=== PATIENT | female | born 1975 | race Caucasian/White ===

== ENCOUNTER 2022-02-26 09:59 | Outpatient (CLI) | payer OTHER, SELFPAY ==
[2022-02-26 10:08] LABS: Absolute Lymphocyte Count 2.62 X10^3/uL (0.83-4.51); Absolute Neutrophil Count 4.3 X10^3/uL (2.0-7.7); Basophil# 0.06 X10^3/uL; Basophil% 0.8 % (0-1); Eosinophil# 0.14 X10^3/uL; Eosinophils% 1.8 % (0-5); Hematocrit 40.7 % (37-47); Hemoglobin 13.4 g/dL (12.0-15.0); Lymphocyte # 2.62 X10^3/ul (0.83-4.51); Lymphocyte % 33.1 % (19-41); Mean Corp Hgb Conc 32.9 g/dL (32-36); Mean Corpuscular Hgb 29.7 pg (27.0-32.0); Mean Corpuscular Volume 90.2 fL (81-99); Mean Platelet Vol. 11.6 fl (6.2-12.0); Monocyte# 0.74 X10^3/uL; Monocyte% 9.4 % (0-10); NRBC Flagged by Analyzer 0 % (0-5); Neutrophil # 4.33 X10^3/uL (2.7-7.7); Neutrophil % 54.6 % (47-70); Platelet Count 312 K/mm3 (150-450); RBC Distribution Width CV 13.4 % (11.6-14.6); Red Blood Count 4.51 M/mm3 (4.2-5.4); White Blood Count 7.9 K/mm3 (4.4-11.0)
[2022-02-26 10:36] LABS: BUN 19 mg/dL (7-18); BUN/Creat Ratio 15.7 RATIO (10-20); Calcium,Total 9.1 mg/dL (8.5-10.1); Chloride 99 mmol/L (98-107); Creatinine, Serum 1.21 mg/dL (0.55-1.02); EST Glomerular Filtration Rate 50 mL/min (>60); Est Glom Filt Rate - Afr Amer 61 mL/min (>60); Glucose 100 mg/dL (74-106); Phosphorus 3.3 mg/dL (2.5-4.9); Potassium 3.2 mmol/L (3.5-5.1); Sodium Level 139 mmol/L (136-145)
== END 2022-02-26 23:59 | disposition home or self-care (01) ==
PROVIDERS: Referring Provider Nurse Practitioner; Visit Provider Nurse Practitioner
DX: L03.90 Cellulitis, unspecified (principal)
CPT/HCPCS: 80069; 85025

== ENCOUNTER 2022-07-17 14:15 | Outpatient (RCR) | payer OTHER, SELFPAY ==
[2022-06-26 13:10] VITALS: BP 157/94; PULSE 73; RESP 16; TEMP 36.1; BMI 39.4
--- NOTE | 2022-06-26 16:15 | HP.PCM_ITS ---
History of Present Illness Date of Service: 06/26/22 Chief Complaint: Right and left leg non healing ulcers History of Wound: Patient is a 46 year old female who was referred by [facility] for a non healing ulcer on her left anterior leg. She had a cellulitis on her left leg in February and was treated with Cefdinir. Her dog scratched her right lateral leg 4 weeks ago. She has been compression to help with her lower leg edema and her PCP has placed her on furosemide daily. She has not been placing anything on her ulcers. She has been getting in her swimming pool at home to lay on a raft. She has a history of Fibromyalgia, HTN, Hyperthyroidism (that is resolved). Today she denies fever, chills, nausea, vomiting. She states her appetite is good. Progress of Wound: Right lateral leg wound is very small with some depth, unable to see the bottom of the ulcer, but it drains clear drainage. Left anterior leg ulcer has scab covering the ulcer, it is more sensitive to palpation. She has +2 edema even with wearing compression stockings. [facility] Medical History Bilateral lower extremity edema Fibromyalgia History of hyperthyroidism Hypertension Home Medications furosemide 20 mg tablet 20 mg PO DAILY 06/26/22 [History Last Taken Unknown] hydrochlorothiazide 50 mg tablet 50 mg PO DAILY 06/26/22 [History Last Taken Unknown] metoprolol tartrate 50 mg tablet 50 mg PO BID 06/26/22 [History Last Taken Unknown] milnacipran 50 mg tablet (Savella) 50 mg PO BID 06/26/22 [History Last Taken Unknown] naltrexone 50 mg tablet 6.5 mg PO DAILY 06/26/22 [History Last Taken Unknown] potassium 20 mg chewable tablet 20 mg PO DAILY 06/26/22 [History Last Taken Unknown] pregabalin 300 mg capsule (Lyrica) 150 mg PO BID 06/26/22 [History Last Taken Unknown] Allergy/AdvReac Type Severity Reaction Status Date / Time Sulfa (Sulfonamide Allergy Hives Verified 06/26/22 13:30 Antibiotics) sulfamethoxazole AdvReac Other Verified 06/26/22 13:30 [From Bactrim] trimethoprim [From Bactrim] AdvReac Other Verified 06/26/22 13:30 Social History Smoking Status: Never smoker ROS Constitutional Constitutional: Reports body ache(s), fatigue and frequent falls; Denies chills or fever(s) Eyes Eyes: Reports none ENT HEENT: Reports none Cardiovascular Cardiovascular: Reports leg edema; Denies chest pain or dyspnea Respiratory/Chest Respiratory/Chest: Denies cough or dyspnea Gastrointestinal Gastrointestinal: Reports none Musculoskeletal Musculoskeletal: Reports stiffness Integumentary Integumentary: Reports skin ulcer and skin swelling; Denies erythema Psychiatric Psychiatric: Reports none Endocrine Endocrinology: Reports none Vital Signs Vital Signs Vital Signs: 06/26/22 13:10 Temperature 97 F L Temperature Source Temporal Pulse Rate 73 Respiratory Rate 16 Blood Pressure 157/94 H Blood Pressure Mean 115 Blood Pressure Source Monitor Blood Pressure Position Sitting Blood Pressure Location Left Arm Oxygen Delivery Method Room Air Weight Weight: 237 lb Body Mass Index (BMI) 39.4 Physical Exam Const alert, oriented x3 and no apparent distress General Appearance: cooperative HEENT normocephalic Neck full ROM Resp normal respiratory effort, normal air movement and clear to auscultation bilaterally Cardio regular rate and regular rhythm Peripheral Pulses: dorsalis pedis pulses present GI soft to palpation and non-tender Extremity normal capillary refill Extremity Narrative: bilateral lower extremity edema +2 Skin Wound Narrative: Right lateral leg ulcer is very small, with depth and drains clear serous fluid. Left anterior leg ulcer with dry scabbing, very tender to palpation. Neuro oriented x3 and moves all extremities Psych mental status grossly normal Debridement Note Debridement Note Wound debrided: anterior leg ulcer Laterality: Left Type of Debridement: Excisional debridement Anesthesia Used: 5% Lidocaine Gel Depth: Down to and including healthy tissue and in the subcutaneous layer Percentage of wound debrided: 100 Instrument Used: 5mm curette Tissue Removed: Devitalized tissue and slough Severity: Fat Layer Exposed Amount of bleeding with debridement: Mild Bleeding Controlled with: Pressure and Compression and gauze Patient tolerated procedure: Patient tolerated procedure well Post-Debridement Measurements and Additional Note: Post-Debridement Measurements/Treatment WC - Nurse 1 - General Ulcer Assessment Start: 06/26/22 13:09 Freq: Status: Active Protocol: [email or web address] Activity Type Activity Date Activity User E-sign Co-sign Detail Recorded Client Recorded Date Recorded By Document 06/26/22 13:10 [facility] [id number] 06/26/22 13:26 [facility] 06/26/22 13:10 WC - Today's Visit Information Type of service Initial Visit Arrival Mode Ambulatory Transfer Assistance None Patient Identification Verified (Name & Yes ) Patient Requires Transmission-Based No Precautions Height and Weight Height 5 ft 5 in Weight 237 lb Weight in Pounds 237.0 lbs Weight Measurement Method Estimated by Patient Body Mass Index (BMI) 39.4 BMI Classification Obese BSA - Gerardo 2.13 Vital Signs Temperature (97.8 F-99.1 F) 97 F L Temperature Source Temporal Pulse Rate (60-100) 73 Pulse Location Monitor Respiratory Rate (12-18) 16 Respiratory rate source Observation Oxygen Delivery Method Room Air Blood Pressure (90/60-120/80) 157/94 H Blood Pressure Mean 115 Source Monitor Position Sitting Blood Pressure Location Left Arm History Since Last Visit- (Skip if this is Patient's initial visit) Left Footwear Regular Shoe Right Footwear Regular Shoe Pain Scale: 0-10 Numeric Is Patient Pain Free? Yes Lower Extremity Assessment/ Foot Assessment/ Toe Nail Assessment Right -Posterior Tibial Palpable No -Posterior Tibial Doppler Monophasic -Dorsalis Pedis Palpable Yes -Dorsalis Pedis Doppler Monophasic -Extremity Color Normal -Hair Growth on Legs Yes -Hair Growth on Toes Yes -Temperature of Extremity Warm -Capillary Refill Less than 3 Seconds -Other Deformity No -Prior Foot Ulcer No -Charcot Joint No -Prior Amputation No -Thick No -Discolored No -Deformed No -Improper Length & Hygeine No Left -Posterior Tibial Palpable No -Posterior Tibial Doppler Monophasic -Dorsalis Pedis Palpable Yes -Dorsalis Pedis Doppler Monophasic -Extremity Color Normal -Hair Growth on Legs Yes -Hair Growth on Toes Yes -Temperature of Extremity Warm -Other Deformity No -Prior Foot Ulcer No -Charcot Joint No -Prior Amputation No -Thick No -Discolored No -Deformed No -Improper Length & Hygeine No Neuropathy Assessment Feet - Top Side and Bottom <Entered> (a) Communication Assessment Preferred language [place] Fishing Captain Required No Able to Read Yes Able to Write Yes Communication Tools None Right Hearing Abillity Normal Left Hearing Abillity Normal Visual Assistive Devices Glasses Teaching Assessment Preferences Verbal,Written, Audio/Visual, Demonstration Barriers to Learning None Readiness To Learn Excellent Willingness to Engage in Self Management High Activies Readiness to Engage in Self Management High Activities Anxiety Level Calm Cooperation Cooperative Perception Coherent Interest in Health Problem Asks Questions Education Importance Acknowledges Need Does Patient Smoke tobacco or other No substances Smoking Status Never smoker Is Patient Diabetic No Functional Assessment Recent Decline in Ability to Perform Denies Any Declines Culture/Adventist/Residential Real Estate Agent Cultural/Adventist Needs that may affect No Treatment Plan Teaching: Wound Center *Welcome to the Wound Center -Person Taught Patient -Teaching Method Discussion -Response to teaching Verbalize understanding Welcome to the Wound Care Center [place] (a) 1 - + WC - Nurse 1 - General Ulcer Measurement Start: 06/26/22 13:09 Freq: Status: Active Protocol: Activity Type Activity Date Activity User E-sign Co-sign Detail Recorded Client Recorded Date Recorded By Document 06/26/22 13:10 [facility] [id number] 06/26/22 13:26 [facility] 06/26/22 13:10 Wound Center Nurse 1 #2- L VIZCAINO -Combined with other wound No -Current Size (cm) - Length 0.6 -Current Size (cm) - Width 1.1 -Current Size (cm) - Depth 0.1 -Total Square Cm 0.66 -Date of Last Picture (Recall this 06/26/22 field) -Photo Taken Yes -Epithelialization None Present -Tunneling No -Undermining/Tunneling No -Circular Undermining No -Exudate Amt None Present -Wound Margin Distinct, Outline Attached -Granulation Amt None Present (0 %) -Slough/Fibrin Yes -Necrosis Amt Large (67-100%) -Necrotic Tissue Type Adherent Slough -Texture (Brooke-wound Skin Appearance) Assessed, Scarring -Moisture (Brooke-wound Skin Appearance) Assessed,Dry/ Scaly -Color (Brooke-wound Skin Appearance) Assessed -Temperature (Brooke-wound Skin No Abnormality Appearance) (Pt Warm) -Tenderness on Palpation (Brooke-wound No Skin Appearance) -Ulcer Cleansing Rinsed/ Irrigated with Saline -Foul Odor after Cleansing No -Anesthetic Used 5% Lidocaine Gel #1- R LAT LE -Combined with other wound No -Current Size (cm) - Length 0.1 -Current Size (cm) - Width 0.3 -Current Size (cm) - Depth 0.2 -Total Square Cm 0.03 -Date of Last Picture (Recall this 06/26/22 field) -Photo Taken Yes -Epithelialization None Present -Tunneling No -Undermining/Tunneling No -Circular Undermining No -Exudate Amt Small -Exudate Type Serous -Wound Margin Distinct, Outline Attached -Granulation Amt Large (67-100%) -Granulation Quality Drummond -Slough/Fibrin No -Necrosis Amt None Present (0 %) -Texture (Brooke-wound Skin Appearance) Assessed, Scarring -Moisture (Brooke-wound Skin Appearance) Assessed -Color (Brooke-wound Skin Appearance) Assessed -Temperature (Brooke-wound Skin No Abnormality Appearance) (Pt Warm) -Tenderness on Palpation (Brooke-wound No Skin Appearance) -Ulcer Cleansing Rinsed/ Irrigated with Saline -Foul Odor after Cleansing No -Anesthetic Used 5% Lidocaine Gel Lower Limb Edema Present Yes Right Calf (cm) 49.4 Right Ankle (cm) 26.4 Left Calf (cm) 49.8 Left Ankle (cm) 27.1 WC - Nurse 2 - General Ulcer CM Notes Start: 06/26/22 13:09 Freq: Status: Active Protocol: Activity Type Activity Date Activity User E-sign Co-sign Detail Recorded Client Recorded Date Recorded By Document 06/26/22 13:45 [id number] 06/26/22 13:56 06/26/22 13:45 Wound Center Nurse 2 #2- L VIZCAINO -Time 13:46 -Correct Patient Yes -Correct Side, Site, Position Yes -Correct Procedure Yes -Procedure Performed Yes -Type of Procedure Debridement -Clinical Debridement Subcutaneous -Tissue Removed Subcutaneous -Post Debridement (cm) - Length 0.7 -Post Debridement (cm) - Width 1.0 -Post Debridement (cm) - Depth 0.2 -Total Square (Post) (cm) 0.70 -Area of Debridement (cm) - Length 0.7 -Area of Debridement (cm) - Width 1.0 -Total Square (Area) (cm) 0.70 -Tunneling No -Undermining/Tunneling No -Circular Undermining No -Wound/Ulcer Outcome Not Healed -Ulcer Cleansing Rinsed/ Irrigated with Saline -Foul Odor after Cleansing No -Bioengineered Tissue No -Bleeding Controlled with Pressure -Treatment Response Procedure Tolerated Well -Offloading No -Debridement - Subq, 1st 20sq cm No #1- R LAT LE -Time 13:47 -Correct Patient Yes -Correct Side, Site, Position Yes -Correct Procedure Yes -Procedure Performed Yes -Type of Procedure Debridement -Clinical Debridement Subcutaneous -Tissue Removed Subcutaneous -Post Debridement (cm) - Length 0.2 -Post Debridement (cm) - Width 0.4 -Post Debridement (cm) - Depth 0.2 -Total Square (Post) (cm) 0.08 -Area of Debridement (cm) - Length 0.2 -Area of Debridement (cm) - Width 0.4 -Total Square (Area) (cm) 0.08 -Tunneling No -Undermining/Tunneling No -Circular Undermining No -Wound/Ulcer Outcome Not Healed -Ulcer Cleansing Rinsed/ Irrigated with Saline -Foul Odor after Cleansing No -Bioengineered Tissue No -Bleeding Controlled with Pressure -Treatment Response Procedure Tolerated Well -Offloading No -Debridement - Subq, 1st 20sq cm Yes Pain Scale: 0-10 Numeric Is Patient Pain Free? Yes - Nurse 3 - General Ulcer D/C NN Start: 06/26/22 13:09 Freq: Status: Active Protocol: Activity Type Activity Date Activity User E-sign Co-sign Detail Recorded Client Recorded Date Recorded By Document 06/26/22 14:17 [facility] [id number] 06/26/22 14:18 [facility] 06/26/22 14:17 Wound Care Nurse 3 #2- L VIZCAINO -Ulcer Cleansing Rinsed/ Irrigated with Saline -Foul Odor after Cleansing No -Primary Dressing Applied C Hydrogel ($), Mepilex Border, NonAdherent Contact Layer -Mepilex Border 2 #1- R LAT LE -Ulcer Cleansing Rinsed/ Irrigated with Saline -Foul Odor after Cleansing No -Primary Dressing Applied Mepilex Border, Other -Other Dressing HYDROGEL -Mepilex Border 0 Right -Tubular Bandage Double Layer -Size of Tubigrip Used Size F -Size F ($) 1 Left -Tubular Bandage Double Layer -Size of Tubigrip Used Size F -Size F ($) 1 Treatment Response Procedure Tolerated Well Pain Scale: 0-10 Numeric Is Patient Pain Free? Yes - Visit Discharge Discharge Condition Stable Ambulatory Status Ambulatory Transportation Private Auto Additional Wound Wound debrided: lateral leg ulcer Laterality: Right Type of Debridement: Excisional debridement Anesthesia Used: 5% Lidocaine Gel Depth: Down to and including healthy tissue and in the subcutaneous layer Percentage of wound debrided: 100 Instrument Used: - (size 1 mm curette) Tissue Removed: Devitalized tissue and slough Severity: Fat Layer Exposed Bleeding Controlled with: Compression and gauze Patient tolerated procedure: Patient tolerated procedure well Charges/Coding Visit Charges Office Visits / Consults: 54061 OV L4 Est (25 modifier) Procedures Integumentary [id number]: [id number] Geeta subq tissue 20 sq cm/< Assessment/Plan Assessment/Plan (1) Ulcer of left lower extremity with fat layer exposed: CODE(S): L97.922 - Non-pressure chronic ulcer of unspecified part of left lower leg with fat layer exposed (2) Ulcer of right leg: CODE(S): L97.919 - Non-pressure chronic ulcer of unspecified part of right lower leg with unspecified severity (3) Bilateral lower extremity edema: CODE(S): R60.0 - Localized edema (4) Hypertension: CODE(S): I10 - Essential (primary) hypertension (5) Fibromyalgia: CODE(S): M79.7 - Fibromyalgia PLAN: Plan Patient was evaluated at the wound healing center today. A subcutaneous debridement was performed as documented. Wound care - Collagen hydrogel covered with SAP dressing daily. Double tubigrip for compression. Will order CARIN to be done next week before her appointment so we know what kind of compression we will be able to do. Will also order venous studies to be done. Wound culture obtained on the left anterior leg ulcer today, 06/26/22. Depending on the results of the culture, it may necessitate the need for treatment with antibiotics. Discussed wearing compression through the day and removing it at night time. Instructed her to avoid getting into the swimming pool, as this may delay wound healing. Encouraged a diet high in protein with increased vitamin C to help with wound healing. Follow up on week. She is to call or come in sooner if she has any questions or concerns.
[2022-07-03 13:16] VITALS: BP 136/86; PULSE 75; RESP 18; TEMP 36; BMI 39.4
--- NOTE | 2022-07-03 16:08 | PCM.WC.PN ---
History of Present Illness Date of Service: 07/03/22 Chief Complaint: Right and left leg non healing ulcers History of Wound: Patient is a 46 year old female who was referred by [facility] for a non healing ulcer on her left anterior leg. She had a cellulitis on her left leg in February and was treated with Cefdinir. Her dog scratched her right lateral leg 4 weeks ago. She has been compression to help with her lower leg edema and her PCP has placed her on furosemide daily. She has not been placing anything on her ulcers. She has been getting in her swimming pool at home to lay on a raft. She has a history of Fibromyalgia, HTN, Hyperthyroidism (that is resolved). Wound care - Collagen hydrogel covered with SAP/[place] dressing daily to both ulcers. CARIN's obtained in the office today. Left and right CARIN are 1.23. Today she denies fever, chills, nausea, vomiting. She states her appetite is good. Progress of Wound: Right lateral leg ulcer is smaller in size. Left anterior leg ulcer is also smaller in size. Her edema is slightly improved. Now that we have CARIN's we will place 3M 2 layer wraps on her to help get her edema under better control. Objective Data Objective Data Vital Signs: Vital Signs Temp Pulse Resp BP O2 Del Method 96.8 F L 75 18 136/86 H Room Air 07/03/22 13:16 07/03/22 13:16 07/03/22 13:16 07/03/22 13:16 06/26/22 13:10 Oxygen Delivery Method Room Air Weight: 237 lb Body Mass Index (BMI) 39.4 Lab / Micro Data Micro: Microbiology 06/26/22 14:00 Wound - Leg, Left Gram Stain - Final 06/26/22 14:00 Wound - Leg, Left Wound Culture - Final Staphylococcus sciuri 06/26/22 14:00 Wound - Leg, Left Anaerobic Culture - Final No anaerobic bacteria isolated. Charges/Coding Procedures Integumentary 111xxx-113xx: 92013 Geeta subq tissue 20 sq cm/< Physical Exam Const alert, oriented x3 and no apparent distress General Appearance: cooperative HEENT normocephalic Resp normal respiratory effort and normal air movement Cardio regular rate Peripheral Pulses: dorsalis pedis pulses present Extremity normal capillary refill Extremity Narrative: bilateral lower extremity edema +2, improved compared to last week. Skin Wound Narrative: Bilateral leg ulcers are smaller, right ulcer is not much larger than a pin hole. Neuro oriented x3 and moves all extremities Psych mental status grossly normal Debridement Note Debridement Note Wound debrided: anterior leg ulcer Laterality: Left Type of Debridement: Excisional debridement Anesthesia Used: 5% Lidocaine Gel Depth: Down to and including healthy tissue and in the subcutaneous layer Percentage of wound debrided: 100 Instrument Used: 5mm curette Tissue Removed: Devitalized tissue and slough Severity: Fat Layer Exposed Amount of bleeding with debridement: Mild Bleeding Controlled with: Pressure and Compression and gauze Patient tolerated procedure: Patient tolerated procedure well Post-Debridement Measurements and Additional Note: Post-Debridement Measurements/Treatment - Nurse 1 - General Ulcer Assessment Start: 06/26/22 13:09 Freq: Status: Active Protocol: FILOMENA Activity Type Activity Date Activity User E-sign Co-sign Detail Recorded Client Recorded Date Recorded By Document 06/26/22 13:10 [facility] [id number] 06/26/22 13:26 BM Document 07/03/22 13:16 DL [id number] 07/03/22 13:24 DL 06/26/22 07/03/22 13:10 13:16 - Today's Visit Information Type of service Initial Visit Follow-up Visit (Physician/ELECTRICAL MAINTENANCE ENGINEER ) Arrival Mode Ambulatory Ambulatory Transfer Assistance None None Patient Identification Verified (Name & Yes Yes ) Patient Requires Transmission-Based No No Precautions Height and Weight Height 5 ft 5 in Weight 237 lb Weight in Pounds 237.0 lbs Weight Measurement Method Estimated by Patient Body Mass Index (BMI) 39.4 39.4 BMI Classification Obese Obese BSA - Gerardo 2.13 Vital Signs Temperature (97.8 F-99.1 F) 97 F L 96.8 F L Temperature Source Temporal Temporal Pulse Rate (60-100) 73 75 Pulse Location Monitor Monitor Respiratory Rate (12-18) 16 18 Respiratory rate source Observation Observation Oxygen Delivery Method Room Air Blood Pressure (90/60-120/80) 157/94 H 136/86 H Blood Pressure Mean (mm Hg) 115 102 Source Monitor Monitor Position Sitting Blood Pressure Location Left Arm History Since Last Visit- (Skip if this is Patient's initial visit) Have you changed medications since your No last visit? Any new allergies or adverse reactions No Had a fall/change in ADL's that may No increase risk of falls Signs or symptoms of abuse and/or No neglect since last visit Have you been in the hospital since your No last visit? Has dressing in place as prescribed Yes Has compression in place as prescribed Yes Has offloadiing in place as prescribed N/A Experienced any changes in pain level or No management Left Footwear Regular Shoe Right Footwear Regular Shoe Pain Scale: 0-10 Numeric Is Patient Pain Free? Yes Yes Lower Extremity Assessment/ Foot Assessment/ Toe Nail Assessment Right -Posterior Tibial Palpable No -Posterior Tibial Doppler Monophasic -Dorsalis Pedis Palpable Yes -Dorsalis Pedis Doppler Monophasic -Extremity Color Normal -Hair Growth on Legs Yes -Hair Growth on Toes Yes -Temperature of Extremity Warm -Capillary Refill Less than 3 Seconds -Other Deformity No -Prior Foot Ulcer No -Charcot Joint No -Prior Amputation No -Thick No -Discolored No -Deformed No -Improper Length & Hygeine No Left -Posterior Tibial Palpable No -Posterior Tibial Doppler Monophasic -Dorsalis Pedis Palpable Yes -Dorsalis Pedis Doppler Monophasic -Extremity Color Normal -Hair Growth on Legs Yes -Hair Growth on Toes Yes -Temperature of Extremity Warm -Other Deformity No -Prior Foot Ulcer No -Charcot Joint No -Prior Amputation No -Thick No -Discolored No -Deformed No -Improper Length & Hygeine No Neuropathy Assessment Feet - Top Side and Bottom <Entered> (a) Communication Assessment Preferred language Kosovan Business Machine Operator Required No Able to Read Yes Able to Write Yes Communication Tools None Right Hearing Abillity Normal Left Hearing Abillity Normal Visual Assistive Devices Glasses Teaching Assessment Preferences Verbal,Written, Audio/Visual, Demonstration Barriers to Learning None Readiness To Learn Excellent Willingness to Engage in Self Management High Activies Readiness to Engage in Self Management High Activities Anxiety Level Calm Cooperation Cooperative Perception Coherent Interest in Health Problem Asks Questions Education Importance Acknowledges Need Does Patient Smoke tobacco or other No substances Smoking Status Never smoker Is Patient Diabetic No Functional Assessment Recent Decline in Ability to Perform Denies Any Declines Culture/Congregational/Field Service Specialist Cultural/Congregational Needs that may affect No Treatment Plan Teaching: Wound Center *Welcome to the Wound Center -Person Taught Patient -Teaching Method Discussion -Response to teaching Verbalize understanding Welcome to the Wound Care Center Kosovan (a) 1 - + WC - Nurse 1 - General Ulcer Measurement Start: 06/26/22 13:09 Freq: Status: Active Protocol: Activity Type Activity Date Activity User E-sign Co-sign Detail Recorded Client Recorded Date Recorded By Document 06/26/22 13:10 [facility] [id number] 06/26/22 13:26 BM Document 07/03/22 13:16 [id number] 07/03/22 13:24 DL 06/26/22 07/03/22 13:10 13:16 Wound Center Nurse 1 #2- L VIZCAINO -Combined with other wound No -Current Size (cm) - Length 0.6 0.3 -Current Size (cm) - Width 1.1 0.3 -Current Size (cm) - Depth 0.1 0.1 -Total Square Cm 0.66 0.09 -Date of Last Picture (Recall this 06/26/22 field) -Photo Taken Yes No -Epithelialization None Present -Tunneling No -Undermining/Tunneling No -Circular Undermining No -Exudate Amt None Present Small -Exudate Type Serosanguineous -Wound Margin Distinct, Distinct, Outline Outline Attached Attached -Granulation Amt None Present (0 Small (1-33%) %) -Granulation Quality Red -Slough/Fibrin Yes -Necrosis Amt Large (67-100%) Small (1-33%) -Necrotic Tissue Type Adherent Slough Adherent Slough -Structure Exposed N/A -Texture (Brooke-wound Skin Appearance) Assessed, Scarring Scarring -Moisture (Brooke-wound Skin Appearance) Assessed,Dry/ No Abnormality Scaly -Color (Brooke-wound Skin Appearance) Assessed No Abnormality -Temperature (Brooke-wound Skin No Abnormality No Abnormality Appearance) (Pt Warm) (Pt Warm) -Tenderness on Palpation (Brooke-wound No No Skin Appearance) -Ulcer Cleansing Rinsed/ Rinsed/ Irrigated with Irrigated with Saline Saline -Foul Odor after Cleansing No No -Anesthetic Used 5% Lidocaine 5% Lidocaine Gel Gel #1- R LAT LE -Combined with other wound No -Current Size (cm) - Length 0.1 0.1 -Current Size (cm) - Width 0.3 0.1 -Current Size (cm) - Depth 0.2 0.1 -Total Square Cm 0.03 0.01 -Date of Last Picture (Recall this 06/26/22 field) -Photo Taken Yes No -Epithelialization None Present -Tunneling No -Undermining/Tunneling No -Circular Undermining No -Exudate Amt Small None Present -Exudate Type Serous -Wound Margin Distinct, Distinct, Outline Outline Attached Attached -Granulation Amt Large (67-100%) Small (1-33%) -Granulation Quality Sartell Sartell -Slough/Fibrin No -Necrosis Amt None Present (0 None Present (0 %) %) -Structure Exposed N/A -Texture (Brooke-wound Skin Appearance) Assessed, Scarring Scarring -Moisture (Brooke-wound Skin Appearance) Assessed No Abnormality -Color (Brooke-wound Skin Appearance) Assessed No Abnormality -Temperature (Brooke-wound Skin No Abnormality No Abnormality Appearance) (Pt Warm) (Pt Warm) -Tenderness on Palpation (Brooke-wound No No Skin Appearance) -Ulcer Cleansing Rinsed/ Rinsed/ Irrigated with Irrigated with Saline Saline -Foul Odor after Cleansing No No -Anesthetic Used 5% Lidocaine 5% Lidocaine Gel Gel Lower Limb Edema Present Yes Right Calf (cm) 49.4 47 Right Ankle (cm) 26.4 25.5 Left Calf (cm) 49.8 48 Left Ankle (cm) 27.1 26.5 - Nurse 2 - General Ulcer CM Notes Start: 06/26/22 13:09 Freq: Status: Active Protocol: Activity Type Activity Date Activity User E-sign Co-sign Detail Recorded Client Recorded Date Recorded By Document 06/26/22 13:45 [id number] 06/26/22 13:56 Document 07/03/22 13:37 [id number] 07/03/22 13:40 06/26/22 07/03/22 13:45 13:37 Wound Center Nurse 2 #2- L VIZCAINO -Time 13:46 13:38 -Correct Patient Yes Yes -Correct Side, Site, Position Yes Yes -Correct Procedure Yes Yes -Procedure Performed Yes Yes -Type of Procedure Debridement Debridement -Clinical Debridement Subcutaneous Subcutaneous -Tissue Removed Subcutaneous Subcutaneous -Post Debridement (cm) - Length 0.7 0.5 -Post Debridement (cm) - Width 1.0 0.8 -Post Debridement (cm) - Depth 0.2 0.1 -Total Square (Post) (cm) 0.70 0.40 -Area of Debridement (cm) - Length 0.7 0.5 -Area of Debridement (cm) - Width 1.0 0.8 -Total Square (Area) (cm) 0.70 0.40 -Tunneling No No -Undermining/Tunneling No No -Circular Undermining No No -Wound/Ulcer Outcome Not Healed Not Healed -Ulcer Cleansing Rinsed/ Rinsed/ Irrigated with Irrigated with Saline Saline -Foul Odor after Cleansing No No -Bioengineered Tissue No No -Bleeding Controlled with Pressure Pressure -Treatment Response Procedure Procedure Tolerated Well Tolerated Well -Offloading No No -Debridement - Subq, 1st 20sq cm No Yes #1- R LAT LE -Time 13:47 13:37 -Correct Patient Yes Yes -Correct Side, Site, Position Yes Yes -Correct Procedure Yes Yes -Procedure Performed Yes Yes -Type of Procedure Debridement Debridement -Clinical Debridement Subcutaneous Subcutaneous -Tissue Removed Subcutaneous Subcutaneous -Post Debridement (cm) - Length 0.2 0.1 -Post Debridement (cm) - Width 0.4 0.2 -Post Debridement (cm) - Depth 0.2 0.1 -Total Square (Post) (cm) 0.08 0.02 -Area of Debridement (cm) - Length 0.2 0.1 -Area of Debridement (cm) - Width 0.4 0.2 -Total Square (Area) (cm) 0.08 0.02 -Tunneling No No -Undermining/Tunneling No No -Circular Undermining No No -Wound/Ulcer Outcome Not Healed Not Healed -Ulcer Cleansing Rinsed/ Rinsed/ Irrigated with Irrigated with Saline Saline -Foul Odor after Cleansing No No -Bioengineered Tissue No No -Bleeding Controlled with Pressure Pressure -Treatment Response Procedure Procedure Tolerated Well Tolerated Well -Offloading No No -Debridement - Subq, 1st 20sq cm Yes No Pain Scale: 0-10 Numeric Is Patient Pain Free? Yes Yes - Nurse 3 - General Ulcer D/C NN Start: 06/26/22 13:09 Freq: Status: Active Protocol: Activity Type Activity Date Activity User E-sign Co-sign Detail Recorded Client Recorded Date Recorded By Document 06/26/22 14:17 [facility] [id number] 06/26/22 14:18 BM Document 07/03/22 14:19 [id number] 07/03/22 14:21 MW 06/26/22 07/03/22 14:17 14:19 Wound Care Nurse 3 #2- L VIZCAINO -Ulcer Cleansing Rinsed/ Rinsed/ Irrigated with Irrigated with Saline Saline -Foul Odor after Cleansing No No -Negative Pressure Wound Therapy N/A -Primary Dressing Applied C Hydrogel ($), NonAdherent Mepilex Border, Contact Layer NonAdherent Contact Layer -Other Dressing C.hydrogel -Primary Dressing Covered/Secured with Dry Gauze -Mepilex Border 2 #1- R LAT LE -Ulcer Cleansing Rinsed/ Rinsed/ Irrigated with Irrigated with Saline Saline -Foul Odor after Cleansing No No -Negative Pressure Wound Therapy N/A -Primary Dressing Applied Mepilex Border, Other -Other Dressing HYDROGEL C.Hydrogel -Primary Dressing Covered/Secured with Dry Gauze -Mepilex Border 0 Biateral LE -Lotion applied to leg before Yes compression wrap -Multi-Layered Wrap Application Multi-Layer Comp - Bilat ($ ) Right -Tubular Bandage Double Layer -Size of Tubigrip Used Size F -Size F ($) 1 Left -Tubular Bandage Double Layer -Size of Tubigrip Used Size F -Size F ($) 1 Treatment Response Procedure Procedure Tolerated Well Tolerated Well Pain Scale: 0-10 Numeric Is Patient Pain Free? Yes Yes Teaching: Wound Center Compression Wraps & Stockings -Person Taught Patient -Teaching Method Discussion, Demonstration -Response to teaching Verbalize understanding WC - Visit Discharge Discharge Condition Stable Stable Ambulatory Status Ambulatory Ambulatory Transportation Private Auto Private Auto Accompanied by self Medication Reconcilliation completed & No provided to patient/care provider Clinical Summary of Care Provided Yes Additional Wound Wound debrided: lateral leg ulcer Laterality: Right Type of Debridement: Excisional debridement Anesthesia Used: 5% Lidocaine Gel Depth: Down to and including healthy tissue and in the subcutaneous layer Percentage of wound debrided: 100 Instrument Used: - (size 1 mm curette) Tissue Removed: Devitalized tissue and slough Severity: Fat Layer Exposed Bleeding Controlled with: Compression and gauze Patient tolerated procedure: Patient tolerated procedure well Assessment/Plan Assessment/Plan (1) Ulcer of left lower extremity with fat layer exposed: CODE(S): L97.922 - Non-pressure chronic ulcer of unspecified part of left lower leg with fat layer exposed (2) Ulcer of right leg: CODE(S): L97.919 - Non-pressure chronic ulcer of unspecified part of right lower leg with unspecified severity (3) Bilateral lower extremity edema: CODE(S): R60.0 - Localized edema (4) Hypertension: CODE(S): I10 - Essential (primary) hypertension (5) Fibromyalgia: CODE(S): M79.7 - Fibromyalgia PLAN: Plan Patient was evaluated at the wound healing center today. A subcutaneous debridement was performed as documented. Wound care - Collagen hydrogel covered with SAP dressing daily. Compression - Since CARIN are ok, will place 3M 2 layer wraps on legs bilaterally. She will come in Saturday for a nurse's visit to have the wraps changed and to see how she is tolerating them. She will then follow up with me in one week. She was instructed that the wraps can not get wet. She is to sit with her legs elevated as much as possible. If the wraps are starting to feel tight, she needs to elevate her legs. ABIs done in office today 07/03/22, and both were 1.23. Vascular studies also ordered. Wound culture obtained on the left anterior leg ulcer on 06/26/22, which was positive for Staphylococcus sciuri, will start her on Doxycycline. Educated her on how to take the antibiotic. Encouraged a diet high in protein with increased vitamin C to help with wound healing. Follow up on week. She is to call or come in sooner if she has any questions or concerns.
[2022-07-06 08:54] VITALS: BP 119/82; PULSE 76; TEMP 35.8; BMI 39.4
[2022-07-10 13:22] VITALS: BP 156/76; PULSE 85; RESP 16; TEMP 36.5; BMI 39.4
--- NOTE | 2022-07-10 14:15 | VDLE_ITS ---
[id number] VL^VDU^Venous Duplex US - Yair Extrem [id number] Reason For Study: calf pain RIGHT LEFT GSV is normal. GSV is normal. CFV is compressible, spontaneous, phasic, CFV is compressible, spontaneous, phasic, competent and demonstrates normal competent, and demonstrates normal augmentation. augmentation. FV is compressible, spontaneous, phasic, FV is compressible, spontaneous, phasic, competent and demonstrates normal competent and demonstrates normal augmentation. augmentation. POP V is compressible, spontaneous, phasic, POP V is compressible, spontaneous, phasic, competent and demonstrates normal competent and demonstrates normal augmentation. augmentation. T/P Trunk is compressible. T/P Trunk is compressible. PTV is compressible. PTV is compressible. RT PerV is compressible. LT PerV is compressible. Hypoechoic area behind the knee measuring Hypoechoic area behind the knee measuring 3.67 x .68 cm. Area is nonvascular. 2.93 x .71 cm. Area is nonvascular. Procedure This is a venous duplex using B-mode, color flow and spectral Doppler. Exam performed in department. The exam was diagnostic. A preliminary report was called and/or faxed to Tamanna Pereira. VL/Venous Duplex US - Yair Extrem Interpretation Summary Deep veins of the lower extremities are bilaterally patent and compressible seg mentally. There is no evidence of deep vein thrombosis on either side. Valvular competence appears in tact within the proximal deep venous systems bilaterally. The great saphenous veins appear bila terally patent and compressible segmentally. A non-vascular, hypoechoic structure is noted in each popliteal space, as documented above. These probably represent popliteal cysts. Clinical correlatio n is advised. Ordering Physician: Tamanna Pereira Performed By: Fam De La Torre, RVT
--- NOTE | 2022-07-10 16:31 | PN.PCM_ITS ---
History of Present Illness Date of Service: 07/10/22 Chief Complaint: Right and left leg non healing ulcers History of Wound: Patient is a 46 year old female who was referred by [facility] for a non healing ulcer on her left anterior leg. She had a cellulitis on her left leg in February and was treated with Cefdinir. Her dog scratched her right lateral leg 4 weeks ago. She has been compression to help with her lower leg edema and her PCP has placed her on furosemide daily. She has not been placing anything on her ulcers. She has been getting in her swimming pool at home to lay on a raft. She has a history of Fibromyalgia, HTN, Hyperthyroidism (that is resolved). Wound care - Collagen hydrogel covered with SAP/Minot dressing daily to left ulcer. Wound culture obtained on 06/26/22 which were positive for Staphylococcus sciuri and she was placed on Doxycycline. CARIN's obtained in the office on 07/03/22. Left and right CARIN are 1.23. Today she denies fever, chills, nausea, vomiting. She states her appetite is good. Progress of Wound: Right lateral leg ulcer is healed today. Left anterior leg ulcer is healed but has fragile epithelial skin in place. Her edema is slightly improved but she is complaining of bilateral calf pain. Ordered stat dopplers of her legs and they were negative for DVT. Objective Data Objective Data Vital Signs: Vital Signs Temp Pulse Resp BP O2 Del Method 97.7 F L 85 16 156/76 H Room Air 07/10/22 13:22 07/10/22 13:22 07/10/22 13:22 07/10/22 13:22 07/10/22 13:22 Oxygen Delivery Method Room Air Weight: 237 lb Body Mass Index (BMI) 39.4 Lab / Micro Data Micro: Microbiology 06/26/22 14:00 Wound - Leg, Left Gram Stain - Final 06/26/22 14:00 Wound - Leg, Left Wound Culture - Final Staphylococcus sciuri 06/26/22 14:00 Wound - Leg, Left Anaerobic Culture - Final No anaerobic bacteria isolated. Charges/Coding Visit Charges Office Visits / Consults: [id number] OV L4 Est Physical Exam Const alert and oriented x3 General Appearance: cooperative HEENT normocephalic Resp normal respiratory effort Cardio regular rate Peripheral Pulses: dorsalis pedis pulses present Extremity normal capillary refill Extremity Narrative: bilateral lower extremity edema +2 - +3, not as improved as expected for having 3 M 2 layer wraps on and having calf pain bilaterally Skin Wound Narrative: Right leg ulcer is healed. Left leg ulcer is healed but has fragile epithelial tissue covering it. Neuro oriented x3 and moves all extremities Psych mental status grossly normal Debridement Note Debridement Note No debridement was completed: No debridement was completed today Post-Debridement Measurements and Additional Note: Post-Debridement Measurements/Treatment WC - Nurse 1 - General Ulcer Assessment Start: 06/26/22 13:09 Freq: Status: Active Protocol: FILOMENA Activity Type Activity Date Activity User E-sign Co-sign Detail Recorded Client Recorded Date Recorded By Document 06/26/22 13:10 BMF [id number] 06/26/22 13:26 BMF Document 07/03/22 13:16 DL [id number] 07/03/22 13:24 DL Document 07/06/22 08:54 KR [id number] 07/06/22 08:55 KR Document 07/10/22 13:22 MW [id number] 07/10/22 13:30 MW 06/26/22 07/03/22 07/06/22 13:10 13:16 08:54 WC - Today's Visit Information Type of service Initial Visit Follow-up Visit Nurse-only (Physician/IPHONE DEVELOPER Visit ) Arrival Mode Ambulatory Ambulatory Ambulatory Transfer Assistance None None Accompanied by Patient Identification Verified (Name & Yes Yes Yes ) Patient Requires Transmission-Based No No Precautions Height and Weight Height 5 ft 5 in Weight 237 lb Weight in Pounds 237.0 lbs Weight Measurement Method Estimated by Patient Body Mass Index (BMI) 39.4 39.4 39.4 BMI Classification Obese Obese Obese BSA - Gerardo 2.13 Vital Signs Temperature (97.8 F-99.1 F) 97 F L 96.8 F L 96.5 F L Temperature Source Temporal Temporal Temporal Pulse Rate (60-100) 73 75 76 Pulse Location Monitor Monitor Monitor Respiratory Rate (12-18) 16 18 Respiratory rate source Observation Observation Oxygen Delivery Method Room Air Blood Pressure (90/60-120/80) 157/94 H 136/86 H 119/82 H Blood Pressure Mean (mm Hg) 115 102 94 Source Monitor Monitor Monitor Position Sitting Semi-Fowlers Blood Pressure Location Left Arm Right Arm History Since Last Visit- (Skip if this is Patient's initial visit) Have you changed medications since your No No last visit? Any new allergies or adverse reactions No No Had a fall/change in ADL's that may No No increase risk of falls Signs or symptoms of abuse and/or No No neglect since last visit Have you been in the hospital since your No No last visit? Has dressing in place as prescribed Yes Yes Has compression in place as prescribed Yes Yes Has offloadiing in place as prescribed N/A N/A Experienced any changes in pain level or No No management Left Footwear Regular Shoe Regular Shoe Right Footwear Regular Shoe Regular Shoe Pain Scale: 0-10 Numeric Is Patient Pain Free? Yes Yes Yes Lower Extremity Assessment/ Foot Assessment/ Toe Nail Assessment Right -Posterior Tibial Palpable No -Posterior Tibial Doppler Monophasic -Dorsalis Pedis Palpable Yes -Dorsalis Pedis Doppler Monophasic -Extremity Color Normal -Hair Growth on Legs Yes -Hair Growth on Toes Yes -Temperature of Extremity Warm -Capillary Refill Less than 3 Seconds -Other Deformity No -Prior Foot Ulcer No -Charcot Joint No -Prior Amputation No -Thick No -Discolored No -Deformed No -Improper Length & Hygeine No Left -Posterior Tibial Palpable No -Posterior Tibial Doppler Monophasic -Dorsalis Pedis Palpable Yes -Dorsalis Pedis Doppler Monophasic -Extremity Color Normal -Hair Growth on Legs Yes -Hair Growth on Toes Yes -Temperature of Extremity Warm -Other Deformity No -Prior Foot Ulcer No -Charcot Joint No -Prior Amputation No -Thick No -Discolored No -Deformed No -Improper Length & Hygeine No Neuropathy Assessment Feet - Top Side and Bottom <Entered> (a) Communication Assessment Preferred language [place] Field Service Poultry Technician Required No Able to Read Yes Able to Write Yes Communication Tools None Right Hearing Abillity Normal Left Hearing Abillity Normal Visual Assistive Devices Glasses Teaching Assessment Preferences Verbal,Written, Audio/Visual, Demonstration Barriers to Learning None Readiness To Learn Excellent Willingness to Engage in Self Management High Activies Readiness to Engage in Self Management High Activities Anxiety Level Calm Cooperation Cooperative Perception Coherent Interest in Health Problem Asks Questions Education Importance Acknowledges Need Does Patient Smoke tobacco or other No substances Smoking Status Never smoker Is Patient Diabetic No Functional Assessment Recent Decline in Ability to Perform Denies Any Declines Culture/Samaritan/Manager Critical Care Unit Cultural/Samaritan Needs that may affect No Treatment Plan Teaching: Wound Center *Welcome to the Wound Center -Person Taught Patient -Teaching Method Discussion -Response to teaching Verbalize understanding Welcome to the Wound Care Center [place] 07/10/22 13:22 WC - Today's Visit Information Type of service Follow-up Visit (Physician/IPHONE DEVELOPER ) Arrival Mode Ambulatory Transfer Assistance None Accompanied by self Patient Identification Verified (Name & Yes ) Patient Requires Transmission-Based No Precautions Height and Weight Height Weight Weight in Pounds Weight Measurement Method Body Mass Index (BMI) 39.4 BMI Classification Obese BSA - Gerardo Vital Signs Temperature (97.8 F-99.1 F) 97.7 F L Temperature Source Temporal Pulse Rate (60-100) 85 Pulse Location Monitor Respiratory Rate (12-18) 16 Respiratory rate source Observation Oxygen Delivery Method Room Air Blood Pressure (90/60-120/80) 156/76 H Blood Pressure Mean (mm Hg) 102 Source Monitor Position Sitting Blood Pressure Location Right Arm History Since Last Visit- (Skip if this is Patient's initial visit) Have you changed medications since your No last visit? Any new allergies or adverse reactions No Had a fall/change in ADL's that may No increase risk of falls Signs or symptoms of abuse and/or No neglect since last visit Have you been in the hospital since your No last visit? Has dressing in place as prescribed Yes Has compression in place as prescribed Yes Has offloadiing in place as prescribed N/A Experienced any changes in pain level or No management Left Footwear Regular Shoe Right Footwear Regular Shoe Pain Scale: 0-10 Numeric Is Patient Pain Free? Yes Lower Extremity Assessment/ Foot Assessment/ Toe Nail Assessment Right -Posterior Tibial Palpable -Posterior Tibial Doppler -Dorsalis Pedis Palpable -Dorsalis Pedis Doppler -Extremity Color -Hair Growth on Legs -Hair Growth on Toes -Temperature of Extremity -Capillary Refill -Other Deformity -Prior Foot Ulcer -Charcot Joint -Prior Amputation -Thick -Discolored -Deformed -Improper Length & Hygeine Left -Posterior Tibial Palpable -Posterior Tibial Doppler -Dorsalis Pedis Palpable -Dorsalis Pedis Doppler -Extremity Color -Hair Growth on Legs -Hair Growth on Toes -Temperature of Extremity -Other Deformity -Prior Foot Ulcer -Charcot Joint -Prior Amputation -Thick -Discolored -Deformed -Improper Length & Hygeine Neuropathy Assessment Feet - Top Side and Bottom Communication Assessment Preferred interlibrary loan services librarian Required Able to Read Able to Write Communication Tools Right Hearing Abillity Left Hearing Abillity Visual Assistive Devices Teaching Assessment Preferences Barriers to Learning Readiness To Learn Willingness to Engage in Self Management Activies Readiness to Engage in Self Management Activities Anxiety Level Cooperation Perception Interest in Health Problem Education Importance Does Patient Smoke tobacco or other substances Smoking Status Is Patient Diabetic Functional Assessment Recent Decline in Ability to Perform Culture/Samaritan/Manager Critical Care Unit Cultural/Samaritan Needs that may affect Treatment Plan Teaching: Wound Center *Welcome to the Wound Center -Person Taught -Teaching Method -Response to teaching Welcome to the Wound Care Center (a) 1 - + WC - Nurse 1 - General Ulcer Measurement Start: 06/26/22 13:09 Freq: Status: Active Protocol: Activity Type Activity Date Activity User E-sign Co-sign Detail Recorded Client Recorded Date Recorded By Document 06/26/22 13:10 [facility] [id number] 06/26/22 13:26 BMF Document 07/03/22 13:16 DL [id number] 07/03/22 13:24 DL Document 07/10/22 13:22 MW [id number] 07/10/22 13:30 MW 06/26/22 07/03/22 07/10/22 13:10 13:16 13:22 Wound Center Nurse 1 #2- L VIZCAINO -Combined with other wound No No -Current Size (cm) - Length 0.6 0.3 0.3 -Current Size (cm) - Width 1.1 0.3 0.6 -Current Size (cm) - Depth 0.1 0.1 0.1 -Total Square Cm 0.66 0.09 0.18 -Date of Last Picture (Recall this 06/26/22 07/10/22 field) -Photo Taken Yes No Yes -Epithelialization None Present Small 1-33% -Tunneling No No -Undermining/Tunneling No No -Circular Undermining No No -Exudate Amt None Present Small None Present -Exudate Type Serosanguineous -Wound Margin Distinct, Distinct, Flat & Intact Outline Outline Attached Attached -Granulation Amt None Present (0 Small (1-33%) Large (67-100%) %) -Granulation Quality Red [place] -Slough/Fibrin Yes Yes -Necrosis Amt Large (67-100%) Small (1-33%) Small (1-33%) -Necrotic Tissue Type Adherent Slough Adherent Slough Adherent Slough -Structure Exposed N/A N/A -Texture (Brooke-wound Skin Appearance) Assessed, Scarring Assessed, Scarring Localized Edema ,Scarring -Moisture (Brooke-wound Skin Appearance) Assessed,Dry/ No Abnormality Assessed,Dry/ Scaly Scaly -Color (Brooke-wound Skin Appearance) Assessed No Abnormality No Abnormality, Assessed -Temperature (Brooke-wound Skin No Abnormality No Abnormality No Abnormality Appearance) (Pt Warm) (Pt Warm) (Pt Warm) -Tenderness on Palpation (Brooke-wound No No No Skin Appearance) -Ulcer Cleansing Rinsed/ Rinsed/ Soap and Water Irrigated with Irrigated with Saline Saline -Foul Odor after Cleansing No No No -Anesthetic Used 5% Lidocaine 5% Lidocaine 5% Lidocaine Gel Gel Gel #1- R LAT LE -Combined with other wound No No -Current Size (cm) - Length 0.1 0.1 0.1 -Current Size (cm) - Width 0.3 0.1 0.1 -Current Size (cm) - Depth 0.2 0.1 0.1 -Total Square Cm 0.03 0.01 0.01 -Date of Last Picture (Recall this 06/26/22 07/10/22 field) -Photo Taken Yes No Yes -Epithelialization None Present None Present -Tunneling No No -Undermining/Tunneling No No -Circular Undermining No No -Exudate Amt Small None Present None Present -Exudate Type Serous -Wound Margin Distinct, Distinct, Flat & Intact Outline Outline Attached Attached -Granulation Amt Large (67-100%) Small (1-33%) None Present (0 %) -Granulation Quality [place] N/A -Slough/Fibrin No No -Necrosis Amt None Present (0 None Present (0 None Present (0 %) %) %) -Structure Exposed N/A N/A -Texture (Brooke-wound Skin Appearance) Assessed, Scarring Assessed, Scarring Localized Edema ,Scarring -Moisture (Brooke-wound Skin Appearance) Assessed No Abnormality Assessed,Dry/ Scaly -Color (Brooke-wound Skin Appearance) Assessed No Abnormality Assessed -Temperature (Brooke-wound Skin No Abnormality No Abnormality Appearance) (Pt Warm) (Pt Warm) -Tenderness on Palpation (Brooke-wound No No Skin Appearance) -Ulcer Cleansing Rinsed/ Rinsed/ Irrigated with Irrigated with Saline Saline -Foul Odor after Cleansing No No -Anesthetic Used 5% Lidocaine 5% Lidocaine Gel Gel Lower Limb Edema Present Yes Yes Right Calf (cm) 49.4 47 46.5 Right Ankle (cm) 26.4 25.5 25.5 Left Calf (cm) 49.8 48 51.2 Left Ankle (cm) 27.1 26.5 26.0 WC - Nurse 2 - General Ulcer CM Notes Start: 06/26/22 13:09 Freq: Status: Active Protocol: Activity Type Activity Date Activity User E-sign Co-sign Detail Recorded Client Recorded Date Recorded By Document 06/26/22 13:45 [id number] 06/26/22 13:56 Document 07/03/22 13:37 [id number] 07/03/22 13:40 Document 07/10/22 13:48 [id number] 07/10/22 13:55 06/26/22 07/03/22 07/10/22 13:45 13:37 13:48 Wound Center Nurse 2 #2- L VIZCAINO -Time 13:46 13:38 -Correct Patient Yes Yes No -Correct Side, Site, Position Yes Yes No -Correct Procedure Yes Yes No -Procedure Performed Yes Yes No -Type of Procedure Debridement Debridement -Clinical Debridement Subcutaneous Subcutaneous -Tissue Removed Subcutaneous Subcutaneous -Post Debridement (cm) - Length 0.7 0.5 0 -Post Debridement (cm) - Width 1.0 0.8 0 -Post Debridement (cm) - Depth 0.2 0.1 0 -Total Square (Post) (cm) 0.70 0.40 0 -Area of Debridement (cm) - Length 0.7 0.5 0 -Area of Debridement (cm) - Width 1.0 0.8 0 -Total Square (Area) (cm) 0.70 0.40 0 -Tunneling No No -Undermining/Tunneling No No -Circular Undermining No No -Wound/Ulcer Outcome Not Healed Not Healed Healed- Epithelialized -Ulcer Cleansing Rinsed/ Rinsed/ Irrigated with Irrigated with Saline Saline -Foul Odor after Cleansing No No -Bioengineered Tissue No No -Bleeding Controlled with Pressure Pressure -Treatment Response Procedure Procedure Tolerated Well Tolerated Well -Offloading No No -Debridement - Subq, 1st 20sq cm No Yes #1- R LAT LE -Time 13:47 13:37 -Correct Patient Yes Yes No -Correct Side, Site, Position Yes Yes No -Correct Procedure Yes Yes No -Procedure Performed Yes Yes No -Type of Procedure Debridement Debridement -Clinical Debridement Subcutaneous Subcutaneous -Tissue Removed Subcutaneous Subcutaneous -Post Debridement (cm) - Length 0.2 0.1 0 -Post Debridement (cm) - Width 0.4 0.2 0 -Post Debridement (cm) - Depth 0.2 0.1 0 -Total Square (Post) (cm) 0.08 0.02 0 -Area of Debridement (cm) - Length 0.2 0.1 0 -Area of Debridement (cm) - Width 0.4 0.2 0 -Total Square (Area) (cm) 0.08 0.02 0 -Tunneling No No -Undermining/Tunneling No No -Circular Undermining No No -Wound/Ulcer Outcome Not Healed Not Healed Healed- Epithelialized -Ulcer Cleansing Rinsed/ Rinsed/ Irrigated with Irrigated with Saline Saline -Foul Odor after Cleansing No No -Bioengineered Tissue No No -Bleeding Controlled with Pressure Pressure -Treatment Response Procedure Procedure Tolerated Well Tolerated Well -Offloading No No -Debridement - Subq, 1st 20sq cm Yes No Pain Scale: 0-10 Numeric Is Patient Pain Free? Yes Yes Yes WC - Nurse 3 - General Ulcer D/C NN Start: 06/26/22 13:09 Freq: Status: Active Protocol: Activity Type Activity Date Activity User E-sign Co-sign Detail Recorded Client Recorded Date Recorded By Document 06/26/22 14:17 [facility] [id number] 06/26/22 14:18 BMF Document 07/03/22 14:19 MW [id number] 07/03/22 14:21 MW Document 07/06/22 08:54 KR [id number] 07/06/22 08:55 KR Document 07/10/22 15:03 MW [id number] 07/10/22 15:05 MW 06/26/22 07/03/22 07/06/22 14:17 14:19 08:54 Wound Care Nurse 3 #2- L VIZCAINO -Ulcer Cleansing Rinsed/ Rinsed/ Irrigated with Irrigated with Saline Saline -Foul Odor after Cleansing No No -Negative Pressure Wound Therapy N/A -Primary Dressing Applied C Hydrogel ($), NonAdherent C Hydrogel ($), Mepilex Border, Contact Layer NonAdherent NonAdherent Contact Layer Contact Layer -Other Dressing C.hydrogel -Primary Dressing Covered/Secured with Dry Gauze Dry Gauze, Secured with Tape -Mepilex Border 2 #1- R LAT LE -Ulcer Cleansing Rinsed/ Rinsed/ Irrigated with Irrigated with Saline Saline -Foul Odor after Cleansing No No -Negative Pressure Wound Therapy N/A -Primary Dressing Applied Mepilex Border, Other -Other Dressing HYDROGEL C.Hydrogel -Primary Dressing Covered/Secured with Dry Gauze -Mepilex Border 0 Biateral LE -Lotion applied to leg before Yes compression wrap -Multi-Layered Wrap Application Multi-Layer Multi-Layer Comp - Bilat ($ Comp - Bilat ($ ) ) -Other Right -Tubular Bandage Double Layer -Size of Tubigrip Used Size F -Size F ($) 1 Left -Tubular Bandage Double Layer -Size of Tubigrip Used Size F -Size F ($) 1 Treatment Response Procedure Procedure Tolerated Well Tolerated Well Vital Signs Temperature (97.8 F-99.1 F) 96.5 F L Temperature Source Temporal Pulse Rate (60-100) 76 Pulse Location Monitor Blood Pressure (90/60-120/80) 119/82 H Blood Pressure Mean (mm Hg) 94 Source Monitor Position Semi-Fowlers Blood Pressure Location Right Arm Pain Scale: 0-10 Numeric Is Patient Pain Free? Yes Yes Yes Teaching: Wound Center Compression Wraps & Stockings -Person Taught Patient -Teaching Method Discussion, Demonstration -Response to teaching Verbalize understanding WC - Visit Discharge Discharge Condition Stable Stable Stable Ambulatory Status Ambulatory Ambulatory Ambulatory Transportation Private Auto Private Auto Private Auto Accompanied by self Medication Reconcilliation completed & No provided to patient/care provider Clinical Summary of Care Provided Yes 07/10/22 15:03 Wound Care Nurse 3 #2- L VIZCAINO -Ulcer Cleansing -Foul Odor after Cleansing -Negative Pressure Wound Therapy -Primary Dressing Applied -Other Dressing -Primary Dressing Covered/Secured with -Mepilex Border #1- R LAT LE -Ulcer Cleansing -Foul Odor after Cleansing -Negative Pressure Wound Therapy -Primary Dressing Applied -Other Dressing -Primary Dressing Covered/Secured with -Mepilex Border Biateral LE -Lotion applied to leg before Yes compression wrap -Multi-Layered Wrap Application Multi-Layer Comp - Bilat ($ ) -Other Left LE done per Breanne Tee LPN , Right LE per Paula VARGAS Right -Tubular Bandage -Size of Tubigrip Used -Size F ($) Left -Tubular Bandage -Size of Tubigrip Used -Size F ($) Treatment Response Procedure Tolerated Well Vital Signs Temperature (97.8 F-99.1 F) Temperature Source Pulse Rate (60-100) Pulse Location Blood Pressure (90/60-120/80) Blood Pressure Mean (mm Hg) Source Position Blood Pressure Location Pain Scale: 0-10 Numeric Is Patient Pain Free? Yes Teaching: Wound Center Compression Wraps & Stockings -Person Taught Patient -Teaching Method Discussion, Demonstration -Response to teaching Verbalize understanding WC - Visit Discharge Discharge Condition Stable Ambulatory Status Ambulatory Transportation Private Auto Accompanied by self Medication Reconcilliation completed & No provided to patient/care provider Clinical Summary of Care Provided Yes Assessment/Plan Assessment/Plan (1) Ulcer of left lower extremity with fat layer exposed: CODE(S): L97.922 - Non-pressure chronic ulcer of unspecified part of left lower leg with fat layer exposed (2) Bilateral calf pain: CODE(S): M79.661 - Pain in right lower leg; M79.662 - Pain in left lower leg (3) Bilateral lower extremity edema: CODE(S): R60.0 - Localized edema (4) Hypertension: CODE(S): I10 - Essential (primary) hypertension (5) Fibromyalgia: CODE(S): M79.7 - Fibromyalgia (6) Ulcer of right leg: CODE(S): L97.919 - Non-pressure chronic ulcer of unspecified part of right lower leg with unspecified severity PLAN: Plan Patient was evaluated at the wound healing center today. A subcutaneous debridement was performed as documented. Wound care - Right leg ulcer is healed. Left leg ulcer is healed with fragile epithelial tissue present, cover with gauze for a week or two to protect the area. Stat bilateral leg venous doppler completed today, 07/10/22 and were negative for DVT. Her veins are compressible. She does have a non-vascular, hypoechoic structure noted in each popliteal space, which probably represent popliteal cysts, clinical correlation is advised. Compression - Since she does not have a DVT, will place 3M 2 layer wraps on legs bilaterally. She was instructed that the wraps can not get wet. She is to sit with her legs elevated as much as possible. If the wraps are starting to feel tight, she needs to elevate her legs. ABIs done in office on 07/03/22, and both were 1.23. Vascular studies also ordered. Wound culture obtained on the left anterior leg ulcer on 06/26/22, which was positive for Staphylococcus sciuri, will start her on Doxycycline. Educated her on how to take the antibiotic. Encouraged a diet high in protein with increased vitamin C to help with wound healing. Follow up Saturday for a nurses visit to change her 3M 2 layer wraps. Follow up on week to evaluate her edema. She is to call or come in sooner if she has any questions or concerns.
[2022-07-13 13:41] VITALS: BP 138/93; PULSE 83; TEMP 36.1; BMI 39.4
[2022-07-17 14:57] VITALS: BP 145/100; PULSE 71; RESP 16; TEMP 35.7; BMI 39.4
--- NOTE | 2022-07-17 15:41 | PN.PCM_ITS ---
History of Present Illness Date of Service: 07/17/22 Chief Complaint: Right and left leg non healing ulcers History of Wound: Patient is a 46 year old female who was referred by [facility] for a non healing ulcer on her left anterior leg. She had a cellulitis on her left leg in February and was treated with Cefdinir. Her dog scratched her right lateral leg 4 weeks ago. She has been compression to help with her lower leg edema and her PCP has placed her on furosemide daily. She has not been placing anything on her ulcers. She has been getting in her swimming pool at home to lay on a raft. She has a history of Fibromyalgia, HTN, Hyperthyroidism (that is resolved). Wound care - Collagen hydrogel covered with SAP/Hollywood dressing daily to left ulcer. Wound culture obtained on 06/26/22 which were positive for Staphylococcus sciuri and she was placed on Doxycycline. CARIN's obtained in the office on 07/03/22. Left and right CARIN are 1.23. Today she denies fever, chills, nausea, vomiting. She states her appetite is good. Progress of Wound: Right lateral leg ulcer remains healed. Left anterior leg ulcer is also healed. The 3 M 2 layer wraps have done a good job with her edema control, so we can order compression stockings for her. Objective Data Objective Data Vital Signs: Vital Signs Temp Pulse Resp BP O2 Del Method 96.3 F L 71 16 145/100 H Room Air 07/17/22 14:57 07/17/22 14:57 07/17/22 14:57 07/17/22 14:57 07/17/22 14:57 Oxygen Delivery Method Room Air Weight: 237 lb Body Mass Index (BMI) 39.4 Lab / Micro Data Micro: Microbiology 06/26/22 14:00 Wound - Leg, Left Gram Stain - Final 06/26/22 14:00 Wound - Leg, Left Wound Culture - Final Staphylococcus sciuri 06/26/22 14:00 Wound - Leg, Left Anaerobic Culture - Final No anaerobic bacteria isolated. Charges/Coding Visit Charges Office Visits / Consults: 14306 OV L3 Est Physical Exam Const alert and oriented x3 General Appearance: cooperative HEENT normocephalic Resp normal respiratory effort Cardio regular rate Peripheral Pulses: dorsalis pedis pulses present Extremity normal capillary refill Extremity Narrative: bilateral lower extremity edema +2 non pitting, it has improved 3 M 2 layer wraps on Skin Wound Narrative: Right leg ulcer is healed. Left leg ulcer is healed. Neuro oriented x3 and moves all extremities Psych mental status grossly normal Debridement Note Debridement Note No debridement was completed: No debridement was completed today Post-Debridement Measurements and Additional Note: Post-Debridement Measurements/Treatment WC - Nurse 1 - General Ulcer Assessment Start: 06/26/22 13:09 Freq: Status: Active Protocol: JOSE.LOWEXT Activity Type Activity Date Activity User E-sign Co-sign Detail Recorded Client Recorded Date Recorded By Document 06/26/22 13:10 BMF [id number] 06/26/22 13:26 BMF Document 07/03/22 13:16 DL [id number] 07/03/22 13:24 DL Document 07/06/22 08:54 KR [id number] 07/06/22 08:55 KR Document 07/10/22 13:22 MW [id number] 07/10/22 13:30 MW Document 07/13/22 13:41 KR [id number] 07/13/22 13:42 KR Document 07/17/22 14:57 BMF [id number] 07/17/22 15:01 BMF 06/26/22 07/03/22 07/06/22 13:10 13:16 08:54 - Today's Visit Information Type of service Initial Visit Follow-up Visit Nurse-only (Physician/WOOL SACKER Visit ) Arrival Mode Ambulatory Ambulatory Ambulatory Transfer Assistance None None Accompanied by Patient Identification Verified (Name & Yes Yes Yes ) Patient Requires Transmission-Based No No Precautions Height and Weight Height 5 ft 5 in Weight 237 lb Weight in Pounds 237.0 lbs Weight Measurement Method Estimated by Patient Body Mass Index (BMI) 39.4 39.4 39.4 BMI Classification Obese Obese Obese BSA - Gerardo 2.13 Vital Signs Temperature (97.8 F-99.1 F) 97 F L 96.8 F L 96.5 F L Temperature Source Temporal Temporal Temporal Pulse Rate (60-100) 73 75 76 Pulse Location Monitor Monitor Monitor Respiratory Rate (12-18) 16 18 Respiratory rate source Observation Observation Oxygen Delivery Method Room Air Blood Pressure (90/60-120/80) 157/94 H 136/86 H 119/82 H Blood Pressure Mean (mm Hg) 115 102 94 Source Monitor Monitor Monitor Position Sitting Semi-Fowlers Blood Pressure Location Left Arm Right Arm Comment History Since Last Visit- (Skip if this is Patient's initial visit) Have you changed medications since your No No last visit? Any new allergies or adverse reactions No No Had a fall/change in ADL's that may No No increase risk of falls Signs or symptoms of abuse and/or No No neglect since last visit Have you been in the hospital since your No No last visit? Has dressing in place as prescribed Yes Yes Has compression in place as prescribed Yes Yes Has offloadiing in place as prescribed N/A N/A Experienced any changes in pain level or No No management Left Footwear Regular Shoe Regular Shoe Right Footwear Regular Shoe Regular Shoe Other Footwear Pain Scale: 0-10 Numeric Is Patient Pain Free? Yes Yes Yes Lower Extremity Assessment/ Foot Assessment/ Toe Nail Assessment Right -Posterior Tibial Palpable No -Posterior Tibial Doppler Monophasic -Dorsalis Pedis Palpable Yes -Dorsalis Pedis Doppler Monophasic -Extremity Color Normal -Hair Growth on Legs Yes -Hair Growth on Toes Yes -Temperature of Extremity Warm -Capillary Refill Less than 3 Seconds -Other Deformity No -Prior Foot Ulcer No -Charcot Joint No -Prior Amputation No -Thick No -Discolored No -Deformed No -Improper Length & Hygeine No Left -Posterior Tibial Palpable No -Posterior Tibial Doppler Monophasic -Dorsalis Pedis Palpable Yes -Dorsalis Pedis Doppler Monophasic -Extremity Color Normal -Hair Growth on Legs Yes -Hair Growth on Toes Yes -Temperature of Extremity Warm -Other Deformity No -Prior Foot Ulcer No -Charcot Joint No -Prior Amputation No -Thick No -Discolored No -Deformed No -Improper Length & Hygeine No Neuropathy Assessment Feet - Top Side and Bottom <Entered> (a) Communication Assessment Preferred language [place] Appraiser Real Estate Required No Able to Read Yes Able to Write Yes Communication Tools None Right Hearing Abillity Normal Left Hearing Abillity Normal Visual Assistive Devices Glasses Teaching Assessment Preferences Verbal,Written, Audio/Visual, Demonstration Barriers to Learning None Readiness To Learn Excellent Willingness to Engage in Self Management High Activies Readiness to Engage in Self Management High Activities Anxiety Level Calm Cooperation Cooperative Perception Coherent Interest in Health Problem Asks Questions Education Importance Acknowledges Need Does Patient Smoke tobacco or other No substances Smoking Status Never smoker Is Patient Diabetic No Functional Assessment Recent Decline in Ability to Perform Denies Any Declines Culture/Anabaptism/Apparel Cutter Cultural/Anabaptism Needs that may affect No Treatment Plan Teaching: Wound Center *Welcome to the Wound Center -Person Taught Patient -Teaching Method Discussion -Response to teaching Verbalize understanding Welcome to the Wound Care Center South Korean 07/10/22 07/13/22 07/17/22 13:22 13:41 14:57 WC - Today's Visit Information Type of service Follow-up Visit Nurse-only Follow-up Visit (Physician/WOOL SACKER Visit (Physician/WOOL SACKER ) ) Arrival Mode Ambulatory Ambulatory Ambulatory Transfer Assistance None None Accompanied by self Patient Identification Verified (Name & Yes Yes Yes ) Patient Requires Transmission-Based No No Precautions Height and Weight Height Weight Weight in Pounds Weight Measurement Method Body Mass Index (BMI) 39.4 39.4 39.4 BMI Classification Obese Obese Obese BSA - Gerardo Vital Signs Temperature (97.8 F-99.1 F) 97.7 F L 96.9 F L 96.3 F L Temperature Source Temporal Temporal Temporal Pulse Rate (60-100) 85 83 71 Pulse Location Monitor Monitor Monitor Respiratory Rate (12-18) 16 16 Respiratory rate source Observation Observation Oxygen Delivery Method Room Air Room Air Blood Pressure (90/60-120/80) 156/76 H 138/93 H 145/100 H Blood Pressure Mean (mm Hg) 102 108 115 Source Monitor Monitor Monitor Position Sitting Sitting Sitting Blood Pressure Location Right Arm Right Arm Left Forearm Comment COUNSELED R/T BP History Since Last Visit- (Skip if this is Patient's initial visit) Have you changed medications since your No No No last visit? Any new allergies or adverse reactions No No No Had a fall/change in ADL's that may No No No increase risk of falls Signs or symptoms of abuse and/or No No No neglect since last visit Have you been in the hospital since your No No No last visit? Has dressing in place as prescribed Yes Yes No Has compression in place as prescribed Yes Yes No Has offloadiing in place as prescribed N/A N/A N/A Experienced any changes in pain level or No No No management Left Footwear Regular Shoe Regular Shoe Regular Shoe Right Footwear Regular Shoe Regular Shoe Regular Shoe Other Footwear REMOVED 3MS AND SHOWERED PRIOR TO VISIT Pain Scale: 0-10 Numeric Is Patient Pain Free? Yes Yes Yes Lower Extremity Assessment/ Foot Assessment/ Toe Nail Assessment Right -Posterior Tibial Palpable -Posterior Tibial Doppler -Dorsalis Pedis Palpable -Dorsalis Pedis Doppler -Extremity Color -Hair Growth on Legs -Hair Growth on Toes -Temperature of Extremity -Capillary Refill -Other Deformity -Prior Foot Ulcer -Charcot Joint -Prior Amputation -Thick -Discolored -Deformed -Improper Length & Hygeine Left -Posterior Tibial Palpable -Posterior Tibial Doppler -Dorsalis Pedis Palpable -Dorsalis Pedis Doppler -Extremity Color -Hair Growth on Legs -Hair Growth on Toes -Temperature of Extremity -Other Deformity -Prior Foot Ulcer -Charcot Joint -Prior Amputation -Thick -Discolored -Deformed -Improper Length & Hygeine Neuropathy Assessment Feet - Top Side and Bottom Communication Assessment Preferred yard switch operator Required Able to Read Able to Write Communication Tools Right Hearing Abillity Left Hearing Abillity Visual Assistive Devices Teaching Assessment Preferences Barriers to Learning Readiness To Learn Willingness to Engage in Self Management Activies Readiness to Engage in Self Management Activities Anxiety Level Cooperation Perception Interest in Health Problem Education Importance Does Patient Smoke tobacco or other substances Smoking Status Is Patient Diabetic Functional Assessment Recent Decline in Ability to Perform Culture/Anabaptism/Apparel Cutter Cultural/Anabaptism Needs that may affect Treatment Plan Teaching: Wound Center *Welcome to the Wound Center -Person Taught -Teaching Method -Response to teaching Welcome to the Wound Care Center (a) 1 - + WC - Nurse 1 - General Ulcer Measurement Start: 06/26/22 13:09 Freq: Status: Active Protocol: Activity Type Activity Date Activity User E-sign Co-sign Detail Recorded Client Recorded Date Recorded By Document 06/26/22 13:10 [facility] [id number] 06/26/22 13:26 [facility] Document 07/03/22 13:16 DL [id number] 07/03/22 13:24 DL Document 07/10/22 13:22 MW [id number] 07/10/22 13:30 MW Document 07/17/22 14:57 [facility] [id number] 07/17/22 15:01 [facility] 06/26/22 07/03/22 07/10/22 13:10 13:16 13:22 Wound Center Nurse 1 #2- L VIZCAINO -Combined with other wound No No -Current Size (cm) - Length 0.6 0.3 0.3 -Current Size (cm) - Width 1.1 0.3 0.6 -Current Size (cm) - Depth 0.1 0.1 0.1 -Total Square Cm 0.66 0.09 0.18 -Date of Last Picture (Recall this 06/26/22 07/10/22 field) -Photo Taken Yes No Yes -Epithelialization None Present Small 1-33% -Tunneling No No -Undermining/Tunneling No No -Circular Undermining No No -Exudate Amt None Present Small None Present -Exudate Type Serosanguineous -Wound Margin Distinct, Distinct, Flat & Intact Outline Outline Attached Attached -Granulation Amt None Present (0 Small (1-33%) Large (67-100%) %) -Granulation Quality Red [place] -Slough/Fibrin Yes Yes -Necrosis Amt Large (67-100%) Small (1-33%) Small (1-33%) -Necrotic Tissue Type Adherent Slough Adherent Slough Adherent Slough -Structure Exposed N/A N/A -Texture (Brooke-wound Skin Appearance) Assessed, Scarring Assessed, Scarring Localized Edema ,Scarring -Moisture (Brooke-wound Skin Appearance) Assessed,Dry/ No Abnormality Assessed,Dry/ Scaly Scaly -Color (Brooke-wound Skin Appearance) Assessed No Abnormality No Abnormality, Assessed -Temperature (Brooke-wound Skin No Abnormality No Abnormality No Abnormality Appearance) (Pt Warm) (Pt Warm) (Pt Warm) -Tenderness on Palpation (Brooke-wound No No No Skin Appearance) -Ulcer Cleansing Rinsed/ Rinsed/ Soap and Water Irrigated with Irrigated with Saline Saline -Foul Odor after Cleansing No No No -Anesthetic Used 5% Lidocaine 5% Lidocaine 5% Lidocaine Gel Gel Gel #1- R LAT LE -Combined with other wound No No -Current Size (cm) - Length 0.1 0.1 0.1 -Current Size (cm) - Width 0.3 0.1 0.1 -Current Size (cm) - Depth 0.2 0.1 0.1 -Total Square Cm 0.03 0.01 0.01 -Date of Last Picture (Recall this 06/26/22 07/10/22 field) -Photo Taken Yes No Yes -Epithelialization None Present None Present -Tunneling No No -Undermining/Tunneling No No -Circular Undermining No No -Exudate Amt Small None Present None Present -Exudate Type Serous -Wound Margin Distinct, Distinct, Flat & Intact Outline Outline Attached Attached -Granulation Amt Large (67-100%) Small (1-33%) None Present (0 %) -Granulation Quality [place] N/A -Slough/Fibrin No No -Necrosis Amt None Present (0 None Present (0 None Present (0 %) %) %) -Structure Exposed N/A N/A -Texture (Brooke-wound Skin Appearance) Assessed, Scarring Assessed, Scarring Localized Edema ,Scarring -Moisture (Brooke-wound Skin Appearance) Assessed No Abnormality Assessed,Dry/ Scaly -Color (Brooke-wound Skin Appearance) Assessed No Abnormality Assessed -Temperature (Brooke-wound Skin No Abnormality No Abnormality Appearance) (Pt Warm) (Pt Warm) -Tenderness on Palpation (Brooke-wound No No Skin Appearance) -Ulcer Cleansing Rinsed/ Rinsed/ Irrigated with Irrigated with Saline Saline -Foul Odor after Cleansing No No -Anesthetic Used 5% Lidocaine 5% Lidocaine Gel Gel Lower Limb Edema Present Yes Yes Right Calf (cm) 49.4 47 46.5 Right Ankle (cm) 26.4 25.5 25.5 Left Calf (cm) 49.8 48 51.2 Left Ankle (cm) 27.1 26.5 26.0 07/17/22 14:57 Wound Center Nurse 1 #2- L VIZCAINO -Combined with other wound -Current Size (cm) - Length -Current Size (cm) - Width -Current Size (cm) - Depth -Total Square Cm -Date of Last Picture (Recall this field) -Photo Taken -Epithelialization -Tunneling -Undermining/Tunneling -Circular Undermining -Exudate Amt -Exudate Type -Wound Margin -Granulation Amt -Granulation Quality -Slough/Fibrin -Necrosis Amt -Necrotic Tissue Type -Structure Exposed -Texture (Brooke-wound Skin Appearance) -Moisture (Brooke-wound Skin Appearance) -Color (Brooke-wound Skin Appearance) -Temperature (Brooke-wound Skin Appearance) -Tenderness on Palpation (Brooke-wound Skin Appearance) -Ulcer Cleansing -Foul Odor after Cleansing -Anesthetic Used #1- R LAT LE -Combined with other wound -Current Size (cm) - Length -Current Size (cm) - Width -Current Size (cm) - Depth -Total Square Cm -Date of Last Picture (Recall this field) -Photo Taken -Epithelialization -Tunneling -Undermining/Tunneling -Circular Undermining -Exudate Amt -Exudate Type -Wound Margin -Granulation Amt -Granulation Quality -Slough/Fibrin -Necrosis Amt -Structure Exposed -Texture (Brooke-wound Skin Appearance) -Moisture (Brooke-wound Skin Appearance) -Color (Brooke-wound Skin Appearance) -Temperature (Brooke-wound Skin Appearance) -Tenderness on Palpation (Brooke-wound Skin Appearance) -Ulcer Cleansing -Foul Odor after Cleansing -Anesthetic Used Lower Limb Edema Present Yes Right Calf (cm) 50.7 Right Ankle (cm) 26.6 Left Calf (cm) 50.5 Left Ankle (cm) 26.8 WC - Nurse 2 - General Ulcer CM Notes Start: 06/26/22 13:09 Freq: Status: Active Protocol: Activity Type Activity Date Activity User E-sign Co-sign Detail Recorded Client Recorded Date Recorded By Document 06/26/22 13:45 [id number] 06/26/22 13:56 Document 07/03/22 13:37 [id number] 07/03/22 13:40 Document 07/10/22 13:48 [id number] 07/10/22 13:55 Document 07/17/22 15:22 [id number] 07/17/22 15:22 06/26/22 07/03/22 07/10/22 13:45 13:37 13:48 Wound Center Nurse 2 #2- L VIZCAINO -Time 13:46 13:38 -Correct Patient Yes Yes No -Correct Side, Site, Position Yes Yes No -Correct Procedure Yes Yes No -Procedure Performed Yes Yes No -Type of Procedure Debridement Debridement -Clinical Debridement Subcutaneous Subcutaneous -Tissue Removed Subcutaneous Subcutaneous -Post Debridement (cm) - Length 0.7 0.5 0 -Post Debridement (cm) - Width 1.0 0.8 0 -Post Debridement (cm) - Depth 0.2 0.1 0 -Total Square (Post) (cm) 0.70 0.40 0 -Area of Debridement (cm) - Length 0.7 0.5 0 -Area of Debridement (cm) - Width 1.0 0.8 0 -Total Square (Area) (cm) 0.70 0.40 0 -Tunneling No No -Undermining/Tunneling No No -Circular Undermining No No -Wound/Ulcer Outcome Not Healed Not Healed Healed- Epithelialized -Ulcer Cleansing Rinsed/ Rinsed/ Irrigated with Irrigated with Saline Saline -Foul Odor after Cleansing No No -Bioengineered Tissue No No -Bleeding Controlled with Pressure Pressure -Treatment Response Procedure Procedure Tolerated Well Tolerated Well -Offloading No No -Debridement - Subq, 1st 20sq cm No Yes #1- R LAT LE -Time 13:47 13:37 -Correct Patient Yes Yes No -Correct Side, Site, Position Yes Yes No -Correct Procedure Yes Yes No -Procedure Performed Yes Yes No -Type of Procedure Debridement Debridement -Clinical Debridement Subcutaneous Subcutaneous -Tissue Removed Subcutaneous Subcutaneous -Post Debridement (cm) - Length 0.2 0.1 0 -Post Debridement (cm) - Width 0.4 0.2 0 -Post Debridement (cm) - Depth 0.2 0.1 0 -Total Square (Post) (cm) 0.08 0.02 0 -Area of Debridement (cm) - Length 0.2 0.1 0 -Area of Debridement (cm) - Width 0.4 0.2 0 -Total Square (Area) (cm) 0.08 0.02 0 -Tunneling No No -Undermining/Tunneling No No -Circular Undermining No No -Wound/Ulcer Outcome Not Healed Not Healed Healed- Epithelialized -Ulcer Cleansing Rinsed/ Rinsed/ Irrigated with Irrigated with Saline Saline -Foul Odor after Cleansing No No -Bioengineered Tissue No No -Bleeding Controlled with Pressure Pressure -Treatment Response Procedure Procedure Tolerated Well Tolerated Well -Offloading No No -Debridement - Subq, 1st 20sq cm Yes No Pain Scale: 0-10 Numeric Is Patient Pain Free? Yes Yes Yes 07/17/22 15:22 Wound Center Nurse 2 #2- L VIZCAINO -Time -Correct Patient -Correct Side, Site, Position -Correct Procedure -Procedure Performed -Type of Procedure -Clinical Debridement -Tissue Removed -Post Debridement (cm) - Length -Post Debridement (cm) - Width -Post Debridement (cm) - Depth -Total Square (Post) (cm) -Area of Debridement (cm) - Length -Area of Debridement (cm) - Width -Total Square (Area) (cm) -Tunneling -Undermining/Tunneling -Circular Undermining -Wound/Ulcer Outcome -Ulcer Cleansing -Foul Odor after Cleansing -Bioengineered Tissue -Bleeding Controlled with -Treatment Response -Offloading -Debridement - Subq, 1st 20sq cm #1- R LAT LE -Time -Correct Patient -Correct Side, Site, Position -Correct Procedure -Procedure Performed -Type of Procedure -Clinical Debridement -Tissue Removed -Post Debridement (cm) - Length -Post Debridement (cm) - Width -Post Debridement (cm) - Depth -Total Square (Post) (cm) -Area of Debridement (cm) - Length -Area of Debridement (cm) - Width -Total Square (Area) (cm) -Tunneling -Undermining/Tunneling -Circular Undermining -Wound/Ulcer Outcome -Ulcer Cleansing -Foul Odor after Cleansing -Bioengineered Tissue -Bleeding Controlled with -Treatment Response -Offloading -Debridement - Subq, 1st 20sq cm Pain Scale: 0-10 Numeric Is Patient Pain Free? Yes WC - Nurse 3 - General Ulcer D/C NN Start: 06/26/22 13:09 Freq: Status: Active Protocol: Activity Type Activity Date Activity User E-sign Co-sign Detail Recorded Client Recorded Date Recorded By Document 06/26/22 14:17 [facility] [id number] 06/26/22 14:18 BMF Document 07/03/22 14:19 MW [id number] 07/03/22 14:21 MW Document 07/06/22 08:54 KR [id number] 07/06/22 08:55 KR Document 07/10/22 15:03 MW [id number] 07/10/22 15:05 MW Document 07/13/22 13:41 KR [id number] 07/13/22 13:42 KR Document 07/17/22 15:31 DL [id number] 07/17/22 15:31 DL 06/26/22 07/03/22 07/06/22 14:17 14:19 08:54 Wound Care Nurse 3 #2- L VIZCAINO -Ulcer Cleansing Rinsed/ Rinsed/ Irrigated with Irrigated with Saline Saline -Foul Odor after Cleansing No No -Negative Pressure Wound Therapy N/A -Primary Dressing Applied C Hydrogel ($), NonAdherent C Hydrogel ($), Mepilex Border, Contact Layer NonAdherent NonAdherent Contact Layer Contact Layer -Other Dressing C.hydrogel -Primary Dressing Covered/Secured with Dry Gauze Dry Gauze, Secured with Tape -Mepilex Border 2 #1- R LAT LE -Ulcer Cleansing Rinsed/ Rinsed/ Irrigated with Irrigated with Saline Saline -Foul Odor after Cleansing No No -Negative Pressure Wound Therapy N/A -Primary Dressing Applied Mepilex Border, Other -Other Dressing HYDROGEL C.Hydrogel -Primary Dressing Covered/Secured with Dry Gauze -Mepilex Border 0 Biateral LE -Lotion applied to leg before Yes compression wrap -Multi-Layered Wrap Application Multi-Layer Multi-Layer Comp - Bilat ($ Comp - Bilat ($ ) ) -Other Right -Tubular Bandage Double Layer -Size of Tubigrip Used Size F -Size F ($) 1 Left -Tubular Bandage Double Layer -Size of Tubigrip Used Size F -Size F ($) 1 Treatment Response Procedure Procedure Tolerated Well Tolerated Well Vital Signs Temperature (97.8 F-99.1 F) 96.5 F L Temperature Source Temporal Pulse Rate (60-100) 76 Pulse Location Monitor Blood Pressure (90/60-120/80) 119/82 H Blood Pressure Mean (mm Hg) 94 Source Monitor Position Semi-Fowlers Blood Pressure Location Right Arm Pain Scale: 0-10 Numeric Is Patient Pain Free? Yes Yes Yes Teaching: Wound Center Compression Wraps & Stockings -Person Taught Patient -Teaching Method Discussion, Demonstration -Response to teaching Verbalize understanding WC - Visit Discharge Discharge Condition Stable Stable Stable Ambulatory Status Ambulatory Ambulatory Ambulatory Transportation Private Auto Private Auto Private Auto Accompanied by self Medication Reconcilliation completed & No provided to patient/care provider Clinical Summary of Care Provided Yes 07/10/22 07/13/22 07/17/22 15:03 13:41 15:31 Wound Care Nurse 3 #2- L VIZCAINO -Ulcer Cleansing -Foul Odor after Cleansing -Negative Pressure Wound Therapy -Primary Dressing Applied -Other Dressing -Primary Dressing Covered/Secured with -Mepilex Border #1- R LAT LE -Ulcer Cleansing -Foul Odor after Cleansing -Negative Pressure Wound Therapy -Primary Dressing Applied -Other Dressing -Primary Dressing Covered/Secured with -Mepilex Border Biateral LE -Lotion applied to leg before Yes Yes compression wrap -Multi-Layered Wrap Application Multi-Layer Multi-Layer Multi-Layer Comp - Bilat ($ Comp - Bilat ($ Comp - Bilat ($ ) ) ) -Other Left LE done per Breanne Tee LPN , Right LE per Paula VARGAS Right -Tubular Bandage -Size of Tubigrip Used -Size F ($) Left -Tubular Bandage -Size of Tubigrip Used -Size F ($) Treatment Response Procedure Procedure Tolerated Well Tolerated Well Vital Signs Temperature (97.8 F-99.1 F) 96.9 F L Temperature Source Temporal Pulse Rate (60-100) 83 Pulse Location Monitor Blood Pressure (90/60-120/80) 138/93 H Blood Pressure Mean (mm Hg) 108 Source Monitor Position Sitting Blood Pressure Location Right Arm Pain Scale: 0-10 Numeric Is Patient Pain Free? Yes Yes Yes Teaching: Wound Center Compression Wraps & Stockings -Person Taught Patient -Teaching Method Discussion, Demonstration -Response to teaching Verbalize understanding WC - Visit Discharge Discharge Condition Stable Stable Stable Ambulatory Status Ambulatory Ambulatory Ambulatory Transportation Private Auto Private Auto Accompanied by self Medication Reconcilliation completed & No provided to patient/care provider Clinical Summary of Care Provided Yes Assessment/Plan Assessment/Plan (1) Ulcer of left lower extremity with fat layer exposed: CODE(S): L97.922 - Non-pressure chronic ulcer of unspecified part of left lower leg with fat layer exposed (2) Bilateral calf pain: CODE(S): M79.661 - Pain in right lower leg; M79.662 - Pain in left lower leg (3) Bilateral lower extremity edema: CODE(S): R60.0 - Localized edema (4) Hypertension: CODE(S): I10 - Essential (primary) hypertension (5) Fibromyalgia: CODE(S): M79.7 - Fibromyalgia (6) Ulcer of right leg: CODE(S): L97.919 - Non-pressure chronic ulcer of unspecified part of right lower leg with unspecified severity PLAN: Plan Patient was evaluated at the wound healing center today. Right leg ulcer remains healed as does the left leg wound. The 3M 2 layer wraps have decreased her edema. We will measure her for compression stockings and she will go to [facility] to order them. We will place the 3M 2 layer wraps on her to help keep her edema under control until her stockings come in. When they come in she can remove the 3m wraps and wear her 20-30 compression stockings. Stressed to her that she is going to have to wear compression stockings to control her edema for the rest of her life. She verbalized understanding. Stat bilateral leg venous doppler completed on 07/10/22 and were negative for DVT. Her veins are compressible. She does have a non-vascular, hypoechoic structure noted in each popliteal space, which probably represent popliteal cysts, clinical correlation is advised. Advised her to discuss this with her PCP for further evaluation if her PCP thought it was necessary. ABIs done in office on 07/03/22, and both were 1.23. Vascular studies also ordered. Wound culture obtained on the left anterior leg ulcer on 06/26/22, which was positive for Staphylococcus sciuri, will start her on Doxycycline. Educated her on how to take the antibiotic. Encouraged a diet high in protein with increased vitamin C to help with wound healing. Follow up 2 weeks so we can evaluate how her compression stockings are doing. She should call or come in sooner if she develops any issue with her compression.
== END 2022-07-18 23:59 | disposition home or self-care (01) ==
LOC: WC 14:15
PROVIDERS: PCP Internal Medicine; Visit Provider Nurse Practitioner Family
DX: L03.116 Cellulitis of left lower limb (principal); L97.922 Non-pressure chronic ulcer of unspecified part of left lower leg with fat layer exposed; M79.662 Pain in left lower leg; R60.0 Localized edema; G62.9 Polyneuropathy, unspecified; M79.661 Pain in right lower leg; I10 Essential (primary) hypertension; M79.7 Fibromyalgia
CPT/HCPCS: 11042; 29581; 87070; 87075; 87077; 87186; 87205; 93970; 99213; G0463

== ENCOUNTER 2022-08-16 10:00 | Outpatient (RCR) | payer OTHER, SELFPAY ==
[2022-07-19 00:44] VITALS: BP 145/100; PULSE 71; RESP 16; TEMP 35.7; BMI 39.4
[2022-08-07 13:16] VITALS: BP 118/63; PULSE 90; TEMP 36.1; BMI 39.4
--- NOTE | 2022-08-07 15:05 | PCM.WC.PN ---
History of Present Illness Date of Service: 08/07/22 Chief Complaint: Right and left leg non healing ulcers History of Wound: Patient is a 46 year old female who was referred by [facility] for a non healing ulcer on her left anterior leg. She had a cellulitis on her left leg in February and was treated with Cefdinir. Her dog scratched her right lateral leg 4 weeks ago. She has been compression to help with her lower leg edema and her PCP has placed her on furosemide daily. She has not been placing anything on her ulcers. She has been getting in her swimming pool at home to lay on a raft. She has a history of Fibromyalgia, HTN, Hyperthyroidism (that is resolved). Wound care - Collagen hydrogel covered with SAP/[place] dressing daily to left ulcer. Wound culture obtained on 06/26/22 which were positive for Staphylococcus sciuri and she was placed on Doxycycline. CARIN's obtained in the office on 07/03/22. Left and right CARIN are 1.23. Today she denies fever, chills, nausea, vomiting. She states her appetite is good. Progress of Wound: Her bilateral lower extremity edema had improved with compression until she sat at work for 8 hours last week with her feet dependent and then it increased and she hasn't been able to get it to go back down. She is scheduled for her vascular studies 08/16/22. Objective Data Objective Data Vital Signs: Vital Signs Temp Pulse Resp BP 97.0 F L 90 16 118/63 08/07/22 13:16 08/07/22 13:16 07/19/22 00:44 08/07/22 13:16 Weight: 237 lb Body Mass Index (BMI) 39.4 Charges/Coding Visit Charges Office Visits / Consults: [id number] OV L3 Est Physical Exam Const alert and oriented x3 General Appearance: cooperative HEENT normocephalic Resp normal respiratory effort and clear to auscultation bilaterally Cardio regular rate Peripheral Pulses: dorsalis pedis pulses present Extremity normal capillary refill Extremity Narrative: bilateral lower extremity edema +2 non pitting Skin Wound Narrative: Right leg ulcer and left leg ulcer are both healed. Neuro oriented x3 and moves all extremities Psych mental status grossly normal Debridement Note Debridement Note No debridement was completed: No debridement was completed today Post-Debridement Measurements and Additional Note: Post-Debridement Measurements/Treatment WC - Nurse 1 - General Ulcer Assessment Start: 08/07/22 13:14 Freq: Status: Active Protocol: FILOMENA Activity Type Activity Date Activity User E-sign Co-sign Detail Recorded Client Recorded Date Recorded By Document 08/07/22 13:16 LARRY [id number] 08/07/22 13:17 KR 08/07/22 13:16 WC - Today's Visit Information Type of service Follow-up Visit (Physician/MARK[employer] ) Arrival Mode Ambulatory Patient Identification Verified (Name & Yes ) Height and Weight Body Mass Index (BMI) 39.4 BMI Classification Obese Vital Signs Temperature (97.8 F-99.1 F) 97.0 F L Temperature Source Temporal Pulse Rate (60-100) 90 Pulse Location Monitor Blood Pressure (90/60-120/80) 118/63 Blood Pressure Mean (mm Hg) 81 Source Monitor Position Sitting Blood Pressure Location Right Arm History Since Last Visit- (Skip if this is Patient's initial visit) Have you changed medications since your No last visit? Any new allergies or adverse reactions No Had a fall/change in ADL's that may No increase risk of falls Signs or symptoms of abuse and/or No neglect since last visit Have you been in the hospital since your No last visit? Has dressing in place as prescribed No Has compression in place as prescribed Yes Has offloadiing in place as prescribed N/A Experienced any changes in pain level or No management Left Footwear Regular Shoe Right Footwear Regular Shoe Pain Scale: 0-10 Numeric Is Patient Pain Free? Yes - Nurse 1 - General Ulcer Measurement Start: 08/07/22 13:14 Freq: Status: Active Protocol: Activity Type Activity Date Activity User E-sign Co-sign Detail Recorded Client Recorded Date Recorded By Document 08/07/22 13:16 [id number] 08/07/22 13:17 KR 08/07/22 13:16 Wound Center Nurse 1 Right Calf (cm) 51 Right Ankle (cm) 27.6 Left Calf (cm) 51.5 Left Ankle (cm) 25.6 WC - Nurse 2 - General Ulcer CM Notes Start: 08/07/22 13:14 Freq: Status: Active Protocol: Activity Type Activity Date Activity User E-sign Co-sign Detail Recorded Client Recorded Date Recorded By Document 08/07/22 13:46 [id number] 08/07/22 13:50 JF 08/07/22 13:46 Pain Scale: 0-10 Numeric Is Patient Pain Free? Yes Assessment/Plan Assessment/Plan (1) Bilateral lower extremity edema: CODE(S): R60.0 - Localized edema (2) Hypertension: CODE(S): I10 - Essential (primary) hypertension (3) Fibromyalgia: CODE(S): M79.7 - Fibromyalgia PLAN: Plan Patient was evaluated at the wound healing center today. Right and left leg ulcers remains healed. She has been wearing her compression stockings which have helped control her edema, until she worked for 8 hours with her legs dependent last week. The 3M 2 layer wraps have decreased her edema. We will measure her for compression stockings and she will go to [facility] to order them. Her current compression stockings are 20-30 mmHg, will have her obtain a second pair of compression stockings that are 10-15 mmHg to wear over her other stockings to get 30-40mm Hg of compression. Stressed to her that she is going to have to wear compression stockings to control her edema for the rest of her life. She verbalized understanding. Stat bilateral leg venous doppler completed on 07/10/22 and were negative for DVT. Her veins are compressible. She does have a non-vascular, hypoechoic structure noted in each popliteal space, which probably represent popliteal cysts, clinical correlation is advised. Advised her to discuss this with her PCP for further evaluation if her PCP thought it was necessary. ABIs done in office on 07/03/22, and both were 1.23. Vascular studies also ordered. Wound culture obtained on the left anterior leg ulcer on 06/26/22, which was positive for Staphylococcus sciuri, will start her on Doxycycline. Educated her on how to take the antibiotic. Encouraged a diet high in protein with increased vitamin C to help with wound healing. Follow up as needed. I will contact her with the results of her arterial studies.
--- NOTE | 2022-08-16 08:37 | ART_ITS ---
Reason For Study: Ulcers Procedure A bilateral lower extremity continuous wave Doppler with analog waveform analysis,segmental pressures,and ankle brachial indexes without exercise. Left Segmental Pressures Left brachial= 115mmHg. Left posterior tibial artery = 126mmHg. Left dorsalis pedis artery = 95mmHg. Left digit = 105 mmHg. The left dorsalis pedis waveforms are triphasic. The left posterior tibial artery waveforms are triphasic. Right Segmental Pressures Right brachial= 117mmHg. Right posterior tibial artery = 126mmHg. Right dorsalis pedis artery = 131mmHg. Right digit = 102 mmHg. The right dorsalis pedis waveforms are triphasic. The right posterior tibial artery waveforms are triphasic. Indices The right ankle brachial index by the dorsalis pedis is 1.12. The right ankle brachial index by the posterior tibial artery is 1.08. The right digital-brachial index is 0.87. The left ankle brachial index by the dorsalis pedis is 0.81. The left ankle brachial index by the posterior tibial artery is 1.08. The left digital-brachial index is 0.90. VL/Lower Ext Art Exam w/o Exercis Interpretation Summary Triphasic Doppler waveforms are noted at ankle level bilaterally. Pulse-volume recordings appear satisfactory at all levels bilaterally. Resting ankle-brachial indices are norm al bilaterally. Digital-brachial indices are normal bilaterally. There is no evidence of significant arterial occlusive disease in the lower ext remities bilaterally. Ordering Physician: Tamanna Pereira Referring Physician: Stacy Braun M.D. Performed By: Sharon Millan RVT
--- NOTE | 2022-08-21 15:31 | WC ---
Called patient regarding her LEAS result. 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 Patient verbalized understanding.
== END 2022-08-16 23:59 | disposition home or self-care (01) ==
LOC: WC 10:00
PROVIDERS: PCP Internal Medicine; Referring Provider Nurse Practitioner Family; Visit Provider Nurse Practitioner Family
DX: R60.0 Localized edema (principal); I10 Essential (primary) hypertension; M79.7 Fibromyalgia; M79.661 Pain in right lower leg; M79.662 Pain in left lower leg
CPT/HCPCS: 93923; 99212; G0463